=== PATIENT | female | born 1990 | race African-American/Black ===

== ENCOUNTER 2018-08-22 21:18 | Emergency (ER) | payer OTHER ==
[~2018-08-22] VITALS: Ht 172.7 cm; Wt 69.0 kg
[~2018-08-22 21:18] MED LIST: ALLEGRA-D 24 H1 EACH PO; APAP500 PO; BUTALB-APAP-CA1 EACH PO; CEFDINIR300 MG PO; CEFPODOXIME PR200 M1 PO; COLACE 100 MG100 MG PO; COUMADIN 5 MG TA5 M1 PO; DERMOPLAST SPRA56 ML; ENOXAPARIN60 MG/0.6 SQ; HYDROCODON-ACE1 EACH; HYDROCODONE-AP1 EAC6 PO; HYDROCORTISONE30 G9 RE; IBUPROFEN 800800 M1 PO; IBUPROFEN 800800 MG PO; IRON325 PO; LANOLIN56 GM; LORTAB PO; MUCINEX600 MG PO; NOHOMEMEDICATIONS; ONDANSETRON HCL4 M2 PO; PANTOPRAZOLE SO40 M1 PO; PERCOCET 5-3251 EACH PO; PERCOCET PO; PRENATAL COMPL1 EACH PO; PRENATAL PO; SENNA S TABLET1 EACH PO; TESSALON PERLE100 MG PO; TRINATE TABLET1 TAB PO; TUCKS MEDICATE1 EAC1; VENTOLIN HFA 1818 GM INH; ZPAK PO
== END 2018-08-22 23:37 | disposition home or self-care (01) ==
LOC: ER 21:18
DX: M54.10 Radiculopathy, site unspecified (principal); M79.604 Pain in right leg; G43.909 Migraine, unspecified, not intractable, without status migrainosus; Z90.49 Acquired absence of other specified parts of digestive tract; Z88.0 Allergy status to penicillin; Z88.8 Allergy status to other drugs, medicaments and biological substances